=== PATIENT | male | born 1955 | race Caucasian/White ===

== ENCOUNTER 2020-01-21 05:02 | Observation (INO) | payer MEDICARE, MEDICAID ==
[2020-01-13 15:11] LABS: CLARITY,URINE CLEAR (Clear); COLOR,URINE YELLOW (Yellow); GLUCOSE, URINE NEGATIVE (Neg); KETONES,URINE NEGATIVE (Neg); LEUKOCYTE ESTERASE ,URINE NEGATIVE (Neg); NITRITES, URINE NEGATIVE (Neg); OCCULT BLOOD,URINE NEGATIVE (Neg); PROTEIN,URINE NEGATIVE (Neg)
[2020-01-13 15:14] LABS: UA COLLECTION TYPE NON-SPECIFIED
[2020-01-13 15:15] LABS: BASOPHILS % (AUTO) 0.9 % (0-1); EOSINOPHILS # (AUTO) 0.2 X10'3 (0-0.9); EOSINOPHILS % (AUTO) 4.8 % (0-6); LYMPHOCYTES # (AUTO) 1.6 X10'3 (1.1-4.8); LYMPHOCYTES % (AUTO) 40.3 % (21-51); MEAN CORPUSCULAR HEMOGLOBIN 31.5 PG (27.0-31.0); MEAN CORPUSCULAR HGB CONC 33.4 g/dL (33.0-36.5); MEAN CORPUSCULAR VOLUME 94.2 FL (78-98); MEAN PLATELET VOLUME 8.9 FL (7.4-10.4); MONOCYTES # (AUTO) 0.5 X10'3 (0-0.9); MONOCYTES % (AUTO) 12.2 % (2-12); NEUTROPHILS # (AUTO) 1.6 X10'3 (1.8-7.7); NEUTROPHILS % (AUTO) 41.8 % (42-75); PRE OP HEMOGLOBIN 13.4 g/dL (14.0-17.9); RED BLOOD COUNT 4.24 X10'6 (4.70-6.10); RED CELL DISTRIBUTION WIDTH 14.4 % (11.5-14.5)
[2020-01-13 15:25] LABS: PRE OP INR 1.2 INR; PRE OP PROTIME 12.1 SECONDS (9.0-12.0)
[2020-01-13 15:28] LABS: ALBUMIN 2.8 G/DL (3.4-5.0); ALBUMIN/GLOBULIN RATIO 0.7 (1.1-1.5); ALKALINE PHOSPHATASE 119 IU/L (46-116); BLOOD UREA NITROGEN 25 MG/DL (7-18); BUN/CREATININE RATIO 34.2 (5.4-32.0); CALCIUM 8.7 MG/DL (8.5-10.1); CHLORIDE 109 MMOL/L (99-107); CREATININE 0.73 MG/DL (0.60-1.10); PRE OP ALT 21 U/L (30-65); PRE OP ANION GAP 5 (8-16); PRE OP AST 46 U/L (10-37); PRE OP BILIRUB, TOTAL 0.7 MG/DL (0.0-1.0); PRE OP GLUCOSE 97 MG/DL (70-104); PRE OP POTASSIUM 4.2 MMOL/L (3.4-5.1); PRE OP SODIUM 143 MMOL/L (135-145); TOTAL CARBON DIOXIDE 28.7 MMOL/L (24-32); TOTAL PROTEIN 6.8 G/DL (6.4-8.2); eGFR > 90 ML/MIN
[2020-01-13 15:43] LABS: PRE OP PLATELET COUNT 95 X10'3 (140-440)
[~2020-01-21] VITALS: Ht 177.8 cm; Wt 102.3 kg
[2020-01-21] VITALS (20 sets, daily range): BP systolic 138–172; BP diastolic 66–111
[~2020-01-21 05:02] MED LIST: INSU100V41 SQ; LINA5TAB4 PO; LISI40TA4 PO; METF-438 PO; METH5TAB2 PO; SOFO1TAB PO; VENL150C58 PO; ringers solution, lacted 1,000 ML IV SCH
[2020-01-21] MEDS ORDERED: ceFAZolin 2gm in dextrose, iso 50 ML IV ONE (05:30)
[2020-01-21] MEDS ORDERED: famotidine 20mg tablet PO ONE (05:30)
[2020-01-21] MEDS ORDERED: LIDOcaine 1% (10mg/ml) 2ml vial ONE (06:17)
[2020-01-21] MEDS ORDERED: BUPIVAcaine/PF 2.5 mg/ml (0.25%) 30ml vial ONE (06:39)
--- NOTE | 2020-01-21 07:00 | NUR ---
BG [address]. DR COLMENARES NOTIFIED. ORDERS FOR A 1/2 AMP D50 GIVEN.
[2020-01-21] MEDS ORDERED: dextrose 50%-water 50ml dispensing syringe IV ONE (07:04)
[2020-01-21] MEDS ORDERED: propofol inj 20 ML IV ONE (07:31)
[2020-01-21] MEDS ORDERED: fentaNYL /PF 50mcg/ml 5ml ampule ONE (07:31)
[2020-01-21] MEDS ORDERED: rocuronium 10mg/ml inj IV ONE ×2 (07:31→12:08)
[2020-01-21] MEDS ORDERED: midazolam 2 mg/2 ml injection ONE (07:31)
[2020-01-21] MEDS ORDERED: ringers solution, lacted 1,000 ML IV SCH (07:40)
[2020-01-21] MEDS ORDERED: proCHLORperazine 10 MG/2 ml inj IV PRN (07:40)
[2020-01-21] MEDS ORDERED: meperidine/PF 25mg/ml syringe IV PRN ×3 (07:40)
[2020-01-21] MEDS ORDERED: ondansetron/PF 4mg/2ml inj IV PRN ×2 (07:40→12:55)
[2020-01-21] MEDS ORDERED: morphine 2 MG/ML inj. syringe IV PRN (07:40)
[2020-01-21] MEDS ORDERED: sevoflurane 250ml liquid IH ONE (07:54)
[2020-01-21] MEDS ORDERED: BUPIVACAINE liposomal/PF 13.3 MG/ML vial IM ONE (08:15)
[2020-01-21] MEDS ORDERED: BUPIVAcaine/PF 2.5mg/ml (0.25%) 10ml vial ONE (08:15)
[2020-01-21] MEDS ORDERED: neostigmine methylsulfate 1 MG/ML 10ml vial ONE (12:08)
[2020-01-21] MEDS ORDERED: dexamethasone sod phosphate 4mg/ml inj. ONE (12:08)
[2020-01-21] MEDS ORDERED: glycopyrrolate 0.2mg/ml inj ONE (12:08)
[2020-01-21] MEDS ORDERED: ondansetron/PF 4mg/2ml inj ONE (12:09)
--- NOTE | 2020-01-21 12:28 | NUR ---
Received from OR via [facility] , accompanied by Anesthesiologist DARRIAN and report given by Anesthesiolgist. PATIENT WITH 20G PIV IN LEFT UE RUNNING LR AT 100. DENIES PAIN. ABDOMINAL UMBILICAL FOAM TAPE DRESSING ON WITH ABDOMINAL BANDAID PRESENT. VSS. WILL CONTINUE TO ASSESS. Addendum: 01/21/20 at 1238 by Glynn De Leon RN, RN Amended: Links added.
--- NOTE | 2020-01-21 12:33 | NUR ---
109 BLOOD GLUCOSE IN RR Addendum: 01/21/20 at 1238 by Glynn De Leon RN RN Amended: Links added.
[2020-01-21] MEDS: morphine 4 MG/ML inj SYRINge IV PRN ×2 (12:52→13:11)
[2020-01-21] MEDS ORDERED: naloxone 0.4 mg/ml inj IV PRN (12:55)
[2020-01-21] MEDS ORDERED: HYDROcodone/acetaminophen 10/325mg tab PO PRN (12:55)
[2020-01-21] MEDS ORDERED: CADD PCA waste documentation MC PRN (12:55)
[2020-01-21] MEDS: HYDROmorphone/NS 1 mg/ml CADD 50 ML IV SCH ×7 (13:00→23:00)
--- NOTE | 2020-01-21 14:08 | NUR ---
ALL CRITERIA FOR TRANSFER TO THE FLOOR HAS BEEN ACHIEVED. REPORT GIVEN AND ALL QUESTIONS ANSWERED, VSS. BED LOW 2 RAILS UP, CALL LIGHT PRESENT AND PATIENT HOOKED UP TO ALL LINES AND VSS. PATIENTS RN PRESENT TO ACCEPT CARE. Addendum: 01/21/20 at 1459 by Glynn Arreola - RN RN Amended: Links added.
--- NOTE | 2020-01-21 14:30 | NUR ---
Received pt from recovery via [facility] to room 346B. bed low call light in reach. verbalizes understanding of POC. Home meds taken to RX. copy in chart and given to pt.
[2020-01-21] MEDS: ceFOXitin inj 1 MG in normal saline 100ml IV soln 100 ML IV SCH (16:18)
[2020-01-21] MEDS: gabapentin 400mg capsule PO SCH (16:18)
[2020-01-21] MEDS: Potassium Cl inj 20 MEQ in ringers solution, lacted 1,000 ML IV SCH (17:10)
--- NOTE | 2020-01-21 18:17 | NUR ---
Problems reprioritized. Patient report given, questions answered & plan of care reviewed with Phoebe Saha RN.
--- NOTE | 2020-01-21 18:17 | NUR ---
Patient in room [facility] 346. I have received report from DEJUAN Ham and had the opportunity to ask questions and assume patient care.
[2020-01-21] MEDS ORDERED: dextrose ORAL solution 15 GM/59 ML bottle PO PRN ×2 (22:15)
[2020-01-21] MEDS ORDERED: dextrose 50%-water 50ml dispensing syringe IV PRN ×2 (22:15)
[2020-01-21] MEDS ORDERED: MESSAGE TO PHARMACY PO ONE (22:15)
[2020-01-21] MEDS ORDERED: glucagon, human recombinant 1mg kit SUBCUT PRN (22:15)
[2020-01-22 00:16] VITALS: BP 127/77
[2020-01-22] MEDS: Potassium Cl inj 20 MEQ in ringers solution, lacted 1,000 ML IV SCH ×2 (00:49→05:05)
[2020-01-22] MEDS: ceFOXitin inj 1 MG in normal saline 100ml IV soln 100 ML IV SCH (00:52)
[2020-01-22] MEDS: gabapentin 400mg capsule PO SCH ×3 (00:55→16:11)
[2020-01-22] MEDS: HYDROmorphone/NS 1 mg/ml CADD 50 ML IV SCH ×4 (01:00→07:00)
[2020-01-22 04:00] VITALS: BP 124/84
[2020-01-22 05:31] LABS: ALBUMIN 2.6 G/DL (3.4-5.0); ANION GAP 7 (8-16); BLOOD UREA NITROGEN 31 MG/DL (7-18); BUN/CREATININE RATIO 31.3 (5.4-32.0); CALCIUM 8.1 MG/DL (8.5-10.1); CHLORIDE 105 MMOL/L (99-107); CREATININE 0.99 MG/DL (0.60-1.10); GLUCOSE 135 MG/DL (70-104); POTASSIUM 4.7 MMOL/L (3.5-5.1); SODIUM 138 MMOL/L (135-145); TOTAL CARBON DIOXIDE 25.6 MMOL/L (24-32); eGFR 77 ML/MIN
[2020-01-22 05:41] LABS: BASOPHILS % (AUTO) 0.3 % (0-1); EOSINOPHILS # (AUTO) 0.1 X10'3 (0-0.9); EOSINOPHILS % (AUTO) 0.9 % (0-6); HEMATOCRIT 37.6 % (42.0-52.0); HEMOGLOBIN 12.8 g/dl (14.0-17.9); LYMPHOCYTES # (AUTO) 2.6 X10'3 (1.1-4.8); LYMPHOCYTES % (AUTO) 28.3 % (21-51); MEAN CORPUSCULAR HEMOGLOBIN 31.9 PG (27.0-31.0); MEAN CORPUSCULAR HGB CONC 34.1 g/dL (33.0-36.5); MEAN CORPUSCULAR VOLUME 93.4 FL (78-98); MEAN PLATELET VOLUME 8.6 FL (7.4-10.4); MONOCYTES # (AUTO) 1.2 X10'3 (0-0.9); MONOCYTES % (AUTO) 12.5 % (2-12); NEUTROPHILS # (AUTO) 5.4 X10'3 (1.8-7.7); PLATELET COUNT 128 X10'3 (140-440); RED BLOOD COUNT 4.02 X10'6 (4.70-6.10); RED CELL DISTRIBUTION WIDTH 14.3 % (11.5-14.5); WHITE BLOOD COUNT 9.2 X10'3 (4.5-11.0)
--- NOTE | 2020-01-22 06:29 | NUR ---
Problems reprioritized. Patient report given, questions answered & plan of care reviewed with RN. Alicia.
[2020-01-22 07:40] VITALS: BP 118/61
[2020-01-22] MEDS: insulin Lispro (HumaLOG) vial - multi-dose SQ SCH ×3 (08:51→19:05)
[2020-01-22] MEDS ORDERED: oxyCODONE/APAP 5-325mg tablet PO PRN (09:50)
[2020-01-22 11:00] VITALS: BP 118/61
[2020-01-22] MEDS: venlafaxine XR 75mg capsule (Q24H) PO SCH (11:13)
[2020-01-22] MEDS: lisinopril 20mg tablet PO SCH (11:50)
[2020-01-22] MEDS: oxyCODONE/APAP 5-325mg tablet PO PRN ×3 (11:57→21:48)
[2020-01-22 12:00] VITALS: BP 117/60
[2020-01-22] MEDS: metFORMIN 500mg tablet PO SCH (17:03)
--- NOTE | 2020-01-22 17:58 | NUR ---
patient up ambulating x3. Dressing sites CDI. Tolerating CC diet. pasing gas. wearing abdominal binder in bed and when ambulating. Seen by Dr bernabe. Reilly whelan DC patient stated he is well controlled with percocet pain relief. Given x2. . Report given to Sridevi ZAIDI
[2020-01-22 18:00] VITALS: BP 125/66
[2020-01-22] MEDS ORDERED: INSULIN DEGLUDEC 50 UNIT SQ SCH (20:00)
[2020-01-22] MEDS ORDERED: insulin glargine (Lantus) pen - multi-dose SQ SCH (21:00)
[2020-01-23] VITALS: BP 148/71
[2020-01-23] MEDS: gabapentin 400mg capsule PO SCH ×2 (01:48→07:42)
[2020-01-23] MEDS: oxyCODONE/APAP 5-325mg tablet PO PRN (03:12)
[2020-01-23 06:16] LABS: ALBUMIN 2.7 G/DL (3.4-5.0); ANION GAP 7 (8-16); BLOOD UREA NITROGEN 30 MG/DL (7-18); BUN/CREATININE RATIO 44.8 (5.4-32.0); CALCIUM 8.3 MG/DL (8.5-10.1); CHLORIDE 107 MMOL/L (99-107); CREATININE 0.67 MG/DL (0.60-1.10); GLUCOSE 91 MG/DL (70-104); POTASSIUM 4.2 MMOL/L (3.5-5.1); SODIUM 139 MMOL/L (135-145); TOTAL CARBON DIOXIDE 24.6 MMOL/L (24-32); eGFR > 90 ML/MIN
[2020-01-23 06:18] LABS: BASOPHILS % (AUTO) 0.5 % (0-1); EOSINOPHILS # (AUTO) 0.3 X10'3 (0-0.9); EOSINOPHILS % (AUTO) 4.6 % (0-6); HEMOGLOBIN 13.3 g/dl (14.0-17.9); LYMPHOCYTES # (AUTO) 2.6 X10'3 (1.1-4.8); LYMPHOCYTES % (AUTO) 34.8 % (21-51); MEAN CORPUSCULAR HEMOGLOBIN 32.2 PG (27.0-31.0); MEAN CORPUSCULAR HGB CONC 34.1 g/dL (33.0-36.5); MEAN CORPUSCULAR VOLUME 94.5 FL (78-98); MEAN PLATELET VOLUME 8.9 FL (7.4-10.4); MONOCYTES # (AUTO) 0.9 X10'3 (0-0.9); MONOCYTES % (AUTO) 12.8 % (2-12); NEUTROPHILS # (AUTO) 3.5 X10'3 (1.8-7.7); NEUTROPHILS % (AUTO) 47.3 % (42-75); PLATELET COUNT 99 X10'3 (140-440); RED BLOOD COUNT 4.13 X10'6 (4.70-6.10); RED CELL DISTRIBUTION WIDTH 14.2 % (11.5-14.5); WHITE BLOOD COUNT 7.4 X10'3 (4.5-11.0)
--- NOTE | 2020-01-23 06:44 | NUR ---
Problems reprioritized. Patient report given, questions answered & plan of care reviewed with Vero ZAIDI.
--- NOTE | 2020-01-23 06:57 | NUR ---
Patient in room [facility] 346. I have received report from AIDEN ZAIDI and had the opportunity to ask questions and assume patient care.
--- NOTE | 2020-01-23 06:57 | NUR ---
PT HAS SLIGHT TEMP OF 99.3 I GAVE HIM AN IS AND WILL RECHECK IN [address] MCCULLOUGH WANTS TO DC HIM TODAY.
[2020-01-23 07:03] VITALS: BP 154/86
--- NOTE | 2020-01-23 07:12 | NUR ---
RECHECKED PT AFTER USING IS. PT'S TEMP IS 98.5
[2020-01-23] MEDS ORDERED: PER5325T PO (07:30)
[2020-01-23 07:42] VITALS: BP_SYST 154
[2020-01-23] MEDS: venlafaxine XR 75mg capsule (Q24H) PO SCH (07:42)
[2020-01-23] MEDS: lisinopril 20mg tablet PO SCH (07:42)
[2020-01-23] MEDS: metFORMIN 500mg tablet PO SCH (07:43)
[2020-01-23] MEDS ORDERED: linagliptin 5mg tablet PO SCH (08:00)
--- NOTE | 2020-01-23 09:42 | NUR ---
PT DID NOT WANT TO HAVE HIS BS CORRECTED, HE DIDN'T EAT MUCH AND HIS BS WAS 100
== END 2020-01-23 10:22 | disposition home or self-care (01) ==
LOC: PAS 05:02 → SUR 3N 12:53
PROVIDERS: ADMIT Surgery; ATTEND Surgery
DX: K42.0 Umbilical hernia with obstruction, without gangrene (principal); Z20.828 Contact with and (suspected) exposure to other viral communicable diseases; E11.9 Type 2 diabetes mellitus without complications; I83.90 Asymptomatic varicose veins of unspecified lower extremity; I27.20 Pulmonary hypertension, unspecified; M19.90 Unspecified osteoarthritis, unspecified site; Z79.84 Long term (current) use of oral hypoglycemic drugs; Z79.899 Other long term (current) drug therapy
CPT/HCPCS: 36415; 49652; 71046; 74176; 80048; 80053; 81003; 82948; 83036; 85025; 85610; 85730; 87081; 87635; 93005; 96361; 96365; 96366; 96367; 96375; C1781; C9290; G0378; J0694; J1100; J1170; J1815; J2001; J2175; J2250; J2270; J2405; J2704; J2710; J3010; J3480; J3490; J7120; S2900; A4215; A4618

== ENCOUNTER 2024-08-13 05:54 | Day surgery (SDC) | payer MEDICARE, MEDICAID ==
[2024-08-03 15:14] LABS: EOSINOPHILS # (AUTO) 0.2 X10'3 (0-0.9); LYMPHOCYTES # (AUTO) 1.4 X10'3 (1.1-4.8); LYMPHOCYTES % (AUTO) 32.4 % (21-51); MEAN CORPUSCULAR HEMOGLOBIN 28.7 PG (27.0-31.0); MEAN CORPUSCULAR HGB CONC 33.6 g/dL (33.0-36.5); MEAN CORPUSCULAR VOLUME 85.4 FL (78-98); MEAN PLATELET VOLUME 7.9 FL (7.4-10.4); MONOCYTES # (AUTO) 0.5 X10'3 (0-0.9); MONOCYTES % (AUTO) 10.9 % (2-12); NEUTROPHILS # (AUTO) 2.2 X10'3 (1.8-7.7); NEUTROPHILS % (AUTO) 50.7 % (42-75); PRE OP HEMATOCRIT 39.5 % (42.0-52.0); PRE OP HEMOGLOBIN 13.3 g/dL (14.0-17.9); PRE OP PLATELET COUNT 113 X10'3 (140-440); PRE OP WHITE BLOOD COUNT 4.4 10'3 (4.8-10.8); RED BLOOD COUNT 4.62 X10'6 (4.70-6.10); RED CELL DISTRIBUTION WIDTH 14.9 % (11.5-14.5)
[2024-08-03 15:29] LABS: ALBUMIN 3.4 G/DL (3.4-5.0); ALBUMIN/GLOBULIN RATIO 1.1 (1.1-1.5); ALKALINE PHOSPHATASE 97 IU/L (46-116); BLOOD UREA NITROGEN 19 MG/DL (7-18); BUN/CREATININE RATIO 16.4 (10.0-20.0); CHLORIDE 105 MMOL/L (99-107); CREATININE 1.16 MG/DL (0.60-1.10); PRE OP ALT 14 U/L (30-65); PRE OP ANION GAP 3 (8-16); PRE OP AST 27 U/L (10-37); PRE OP BILIRUB, TOTAL 0.3 MG/DL (0.0-1.0); PRE OP GLUCOSE 147 MG/DL (70-104); PRE OP POTASSIUM 4.6 MMOL/L (3.4-5.1); PRE OP SODIUM 140 MMOL/L (135-145); TOTAL CARBON DIOXIDE 32.2 MMOL/L (24-32); TOTAL PROTEIN 6.6 G/DL (6.4-8.2); eGFR 63 ML/MIN
[~2024-08-13] VITALS: Ht 177.8 cm; Wt 113.8 kg
[2024-08-13] VITALS (14 sets, daily range): BP systolic 141–176; BP diastolic 79–98; PULSE 66–98; RESP 13–21; TEMP 98.5; O2SAT 87–100
[~2024-08-13 05:54] MED LIST changes: +CHOL20002 PO; +GABA300C PO; -INSU100V41 SQ; -LINA5TAB4 PO; +LISI40TA13 PO; -LISI40TA4 PO; +METF-436 PO; -METF-438 PO; +METH-603 PO; -METH5TAB2 PO; +SEMA2PEN SQ; -SOFO1TAB PO; -VENL150C58 PO; -ringers solution, lacted 1,000 ML IV SCH
[2024-08-13] MEDS: ceFOXitin sod/dextrose 2g/50ml 50 ML IV ONE (06:00)
[2024-08-13] MEDS: famotidine 20mg tablet PO ONE (06:34)
[2024-08-13] MEDS: ringers solution, lacted 1,000 ML IV SCH (06:34)
[2024-08-13] MEDS ORDERED: BUPIVAcaine 2.5mg/ml inj 50ml vial (contains preservative) ONE (06:39)
[2024-08-13] MEDS ORDERED: BUPIVACAINE liposomal/PF 13.3 MG/ML 10mL vial IM ONE (06:40)
--- NOTE | 2024-08-13 08:07 | RADIOLOGY REPORT ---
Exam: CT CT ABDOMEN PELVIS History: PREOP DX Comparison Study: CT ABDOMEN PELVIS on DOS: 01/21/20 Technique: Multidetector spiral CT of the abdomen and pelvis was performed from lung bases to pubic s ymphysis. Imaging was performed without intravenous contrast. Coronal and sagittal multiplanar reform ats were obtained from the axial data set by the technologist. Radiation Dose : 1. Abdomen/Pelvis: CTDIvol 36.2 mGy, DLP 1688.6 mGy*cm. Findings: Evaluation of vasculature and solid organs is limited due to lack of intravenous contrast use. Lung Bases: Left middle and lower lobe atelectasis. Visualized portions of the heart and pericardium are unremarkable. Liver: Nodular contour of the liver which is small in size. There is an ill-defined hypodense mass in the right hepatic lobe measuring 3.8 by 2.9 cm. This is new since prior CT from 2019. Gallbladder and Biliary Tree: Punctate calcifications in the gallbladder wall. No gallstones. No in trahepatic or extrahepatic biliary ductal dilatation. Spleen: Borderline splenomegaly measuring 12.8 cm. Pancreas: The pancreas is grossly unremarkable. Adrenal Glands: Unremarkable Kidneys: Kidneys are unremarkable without calculi or hydronephrosis. GI tract: The stomach is grossly normal in appearance. No evidence of small bowel wall thickening or abnormal dilatation to suggest bowel obstruction. The colon is unremarkable. The appendix is visualiz ed and is normal. Peritoneum/mesentery/retroperitoneum. No evidence of free intraperitoneal air. No ascites. No evidenc e of suspicious lymphadenopathy. Abdominal Wall: Fat containing left inguinal hernia. Ventral abdominal wall hernia containing unobstr ucted small bowel loops. Vasculature: The visualized abdominal aorta is normal in size and caliber. Evaluation of abdominal a nd pelvic vessels is limited due to lack of intravenous contrast. Urinary Bladder: Grossly unremarkable for degree of distention. Pelvic Organs: Unremarkable Musculoskeletal: No aggressive focal bony lesions, acute fractures or dislocation. Multilevel lumbar spondylosis. IMPRESSION: 1. No acute abdominal or pelvic findings. 2. Cirrhosis. 3.8 cm hypodense right hepatic lobe mass concerning for primary malignancy or metastati c disease. This is a new finding since prior CT from 2019. 3. Ventral abdominal wall hernia containing unobstructed bowel loops. 4. Borderline splenomegaly.
[2024-08-13] MEDS ORDERED: fentaNYL /PF 50mcg/ml 5ml ampule ONE (08:19)
[2024-08-13] MEDS ORDERED: midazolam 1 mg/ML 2ml injection ONE (08:19)
[2024-08-13] MEDS ORDERED: morphine 4 MG/ML inj SYRINge IV PRN (08:25)
[2024-08-13] MEDS ORDERED: hydrALAZINE 20mg/ml inj. IV PRN (08:25)
[2024-08-13] MEDS ORDERED: acetaminophen 1,000mg/100ml IV 100 ML IV PRN (08:25)
[2024-08-13] MEDS ORDERED: meperidine/PF 25mg/ml syringe IV PRN (08:25)
[2024-08-13] MEDS ORDERED: morphine 2 MG/ML inj. syringe IV PRN (08:25)
[2024-08-13] MEDS ORDERED: ringers solution, lacted 1,000 ML IV SCH (08:25)
[2024-08-13] MEDS ORDERED: labetalol 20mg/4ml (5mg/ml) syringe IV PRN (08:25)
[2024-08-13] MEDS ORDERED: ondansetron/PF 4mg/2ml inj IV PRN (08:25)
[2024-08-13] MEDS ORDERED: proCHLORperazine 10 MG/2 ml inj IV PRN (08:25)
[2024-08-13] MEDS ORDERED: HYDROmorphone/PF 0.2 MG/ML SYRINGE IV PRN ×2 (08:25)
[2024-08-13] MEDS: BUPIVAcaine/PF 2.5 mg/ml (0.25%) 30ml vial IJ ONE (09:21)
[2024-08-13] MEDS ORDERED: propofol inj 20 ML IV ONE (10:37)
[2024-08-13] MEDS ORDERED: dexamethasone sod phosphate 4mg/ml inj. ONE (10:37)
[2024-08-13] MEDS ORDERED: LIDOcaine 2% (20mg/ml) 5ml vial ONE (10:37)
[2024-08-13] MEDS ORDERED: rocuronium 10mg/ml inj IV ONE (10:37)
[2024-08-13] MEDS ORDERED: ondansetron/PF 4mg/2ml inj ONE (10:37)
[2024-08-13] MEDS ORDERED: neostigmine methylsulfate 1 MG/ML 10ml vial ONE (10:51)
[2024-08-13] MEDS ORDERED: glycopyrrolate 0.2mg/ml inj ONE (10:51)
--- NOTE | 2024-08-14 00:37 | OPERATIVE REPORT ---
DATE OF SURGERY: 08/13/2024 DICTATING PHYSICIAN: Pop Shaikh MD PREOPERATIVE DIAGNOSIS: Recurrent ventral hernia. POSTOPERATIVE DIAGNOSIS: Recurrent ventral hernia. PROCEDURES PERFORMED: * Robotic repair of recurrent ventral hernia defect measuring approximately 4 cm with mesh. * Lysis of adhesions. SURGEON: Pop Shaikh MD [employer]ER: None. ANESTHESIA: General anesthesia/Dr. Olmos. DRAINS: None. INDICATIONS FOR OPERATION: The patient is a 68-year-old male with a history of an umbilical hernia with a previous repair. the patient developed recurrent ventral hernia removed from the initial defect, taken to surgery for repair. INTRAOPERATIVE FINDINGS: The patient had another fascial defect lateral to the previous defect. DESCRIPTION OF PROCEDURE: The patient was placed supine on the operating table. After induction of general anesthesia and placement of endotracheal tube, the abdomen was prepped and draped. A subxiphoid incision was then made and Cherri port placed using open technique. Pneumoperitoneum was begun by insufflation of CO2. Additional ports were placed in left lateral abdomen. Robot was then brought to the field. Camera port docked. Camera placed, camera targeted. Ports were then docked and instruments were placed. Abdomen was then explored. The patient had extensive adhesions, subsequently taken down robotically. Fascial defect was easily identified lateral to the previously placed mesh. The defect was then closed with a suture of 0 V-Loc, which was simply oversewn. A 20 x 15 piece of mesh was brought to the field and secured in place with running sutures of 0 V-Loc and 2-0 V-Loc placed circumferentially. Hemostasis was found to be adequate. Robotic instruments were removed. Robot undocked from the field. Abdomen was irrigated with large amount of antibiotic-containing solution. Ports were then removed under laparoscopic vision with no evidence of active bleeding. Final port and camera withdrawn. Pneumoperitoneum was evacuated. Wounds were closed in layers. Skin was closed with clips. Dressings applied. The patient was transferred to recovery in stable condition after reversing from general anesthesia. Pop Shaikh MD TID: [id number] RECEIPT: [id number]/[email or web address]
== END 2024-08-13 13:46 | disposition home or self-care (01) ==
LOC: PAS 05:54
PROVIDERS: ATTEND Surgery
DX: K43.2 Incisional hernia without obstruction or gangrene (principal); I10 Essential (primary) hypertension; Z88.8 Allergy status to other drugs, medicaments and biological substances; E11.9 Type 2 diabetes mellitus without complications; F41.9 Anxiety disorder, unspecified; F32.A Depression, unspecified; Z98.890 Other specified postprocedural states; Z79.899 Other long term (current) drug therapy
CPT/HCPCS: 36415; 49615; 74176; 80053; 82948; 85025; A4215; A4618; C1781; J0666; J0694; J1100; J2003; J2250; J2405; J2704; J2710; J3010; J3490; J7030; J7120; Z7506; Z7508; Z7512; Z7610